=== PATIENT | female | born 1980 | race Caucasian/White ===

== ENCOUNTER 2024-06-26 14:40 | Emergency (ER) | payer OTHER ==
[~2024-06-26] VITALS: Ht 172.7 cm; Wt 95.0 kg
[2024-06-26 15:10] VITALS: PULSE 15; RESP 15; O2SAT 98
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
[2024-06-26] MEDS: KETOROLAC TROMETH 60MG/2ML VIAL IM ONE (18:36)
[2024-06-26] MEDS: METHOCARBAMOL 500 MG TAB PO ONE (18:37)
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
[2024-06-26] MEDS ORDERED: METH-1181 PO (19:24)
[2024-06-26] MEDS ORDERED: IBUP-1455 PO (19:24)
[2024-06-26] MEDS ORDERED: HYDR-4902 PO (19:24)
[2024-06-26 19:30] VITALS: BP 139/88; PULSE 84; RESP 16; TEMP 97.8; O2SAT 97
== END 2024-06-26 20:03 | disposition home or self-care (01) ==
LOC: EDBD 14:40 → ER 14:50
DX: S16.1XXA Strain of muscle, fascia and tendon at neck level, initial encounter (principal); S46.912A Strain of unspecified muscle, fascia and tendon at shoulder and upper arm level, left arm, initial encounter; S50.02XA Contusion of left elbow, initial encounter; S80.01XA Contusion of right knee, initial encounter; J45.909 Unspecified asthma, uncomplicated; I10 Essential (primary) hypertension; Z90.49 Acquired absence of other specified parts of digestive tract; Z90.89 Acquired absence of other organs; Z98.890 Other specified postprocedural states; Z88.1 Allergy status to other antibiotic agents; V43.52XA Car driver injured in collision with other type car in traffic accident, initial encounter; Y93.89 Activity, other specified; Y92.89 Other specified places as the place of occurrence of the external cause; Y99.8 Other external cause status
CPT/HCPCS: 71045; 72125; 72128; 72131; 73030; 73080; 73562; 81025; 96372; 99285; J1885